=== PATIENT | male | born 1985 | race Caucasian/White ===

== ENCOUNTER 2024-01-11 21:37 | Emergency (ER) | payer OTHER ==
[~2024-01-11] VITALS: Ht 180.3 cm; Wt 74.8 kg
[2024-01-11] MEDS ORDERED: ACETAMINOPHEN ES 500 MG TABLET ONE (21:57)
[2024-01-11] MEDS: ACETAMINOPHEN ES 500 MG TABLET PO ONE (21:59)
[2024-01-11 22:50] VITALS: BP 154/95; TEMP 98.4; O2SAT 98
== END 2024-01-11 22:51 | disposition home or self-care (01) ==
LOC: ER 21:42
DX: S00.03XA Contusion of scalp, initial encounter (principal); S06.0X0A Concussion without loss of consciousness, initial encounter; V00.131A Fall from skateboard, initial encounter; Y93.89 Activity, other specified; Y92.89 Other specified places as the place of occurrence of the external cause; Y99.8 Other external cause status
CPT/HCPCS: 70450-TC